=== PATIENT | female | born 1975 ===

== ENCOUNTER 2020-04-21 00:24 | Inpatient (IN) | payer OTHER ==
[2020-04-21] MEDS ORDERED: SODIUM CHLORIDE 0.9% 1000 ML 1,000 ML IV ONE ×2 (01:21→04:20)
[2020-04-21 02:11] LABS: Basophils # (Auto) 0.1 K/mm3 (0.0-0.1); Basophils % (Auto) 0.7 % (0.0-1.8); Eosinophils # (Auto) 0.1 K/mm3 (0.0-0.4); Eosinophils % (Auto) 0.5 % (0.0-4.3); Hematocrit 35.5 % (30.3-42.9); Hemoglobin 12.5 gm/dl (10.1-14.3); Lymphocytes # (Auto) 1.4 K/mm3 (1.2-5.4); Mean Corpuscular HGB Conc 35 % (30-34); Mean Corpuscular Volume 96 fl (79-97); Monocytes # (Auto) 0.6 K/mm3 (0.0-0.8); Monocytes % (Auto) 4.7 % (0.0-7.3); Platelet Count 244 K/mm3 (140-440); Red Cell Distribution Width 12.6 % (13.2-15.2)
[2020-04-21] MEDS ORDERED: KETOROLAC 30 MG/1 ML INJ IV ONE (02:36)
--- NOTE | 2020-04-21 03:20 | Ultrasound Report ---
ULTRASOUND OBSTETRIC INDICATION / CLINICAL INFORMATION: abd pain, bleeding. TECHNIQUE: Transabdominal. COMPARISON: OB ultrasound 03/28/2020 FINDINGS: Previously noted IUP no longer visualized characteristic for recent miscarriage. Uterus is mildly enlarged measuring 12.5 x 6.5 x 10.1 cm. Endometrial stripe is thickened and heterogeneous andrea suring 2.7 cm. ADNEXA: No significant abnormality. FREE FLUID: None. ADDITIONAL FINDINGS: None. IMPRESSION: 1. Spontaneous with thickened irregular endometrial stripe. No definite retained products of conception Signer Name: Carter Rahman MD Signed: 04/21/2020 3:15 AM Workstation Name: [email or web address]
--- NOTE | 2020-04-21 04:01 | Emergency Department Report ---
ED HPI - General Chief complaint: Vaginal Bleeding Stated complaint: MISCARRIAGE Time Seen by Provider: 04/21/20 01:12 Source: patient Mode of arrival: Ambulatory Limitations: No Limitations - History of Present Illness Initial comments: 45-year-old female, , presents to ED with vaginal bleeding since 10:30 PM. Patient reports she is 3 months . Patient reports associated abdominal cramping. Reports heavy bleeding with clots. OB: Hattie Macias MD Complaint: vaginal bleeding -: Last night Location: pelvis Radiation: none Severity: severe Quality: cramping Consistency: constant Improves with: none Worsens with: none Associated symptoms: denies other symptoms Vaginal bleeding: heavy, clots :: Yes Number of weeks : 12 Pre-julio care: followed by OB - Related Data : 2 Para: 1 Ab: 0 Allergies Allergy/AdvReac Type Severity Reaction Status Date / Time No Known Allergies Allergy Verified 03/28/20 10:55 ED Review of Systems ROS: Stated complaint: MISCARRIAGE Other details as noted in HPI Comment: All other systems reviewed and negative Gastrointestinal: abdominal pain Genitourinary: other (Vaginal bleeding reported) ED Past Medical Hx - Past Medical History Previous Medical History?: Yes Additional medical history: fibroids - Surgical History Past Surgical History?: Yes Additional Surgical History: x1 - Social History Smoking Status: Never Smoker Substance Use Type: None ED Physical Exam - General Limitations: No Limitations General appearance: alert, in no apparent distress - Head Head exam: Present: atraumatic, normocephalic - Eye Eye exam: Present: normal appearance, EOMI - ENT ENT exam: Present: mucous membranes moist - Neck Neck exam: Present: normal inspection - Respiratory Respiratory exam: Present: normal lung sounds bilaterally. Absent: respiratory distress - Cardiovascular Cardiovascular Exam: Present: regular rate, normal rhythm - GI/Abdominal GI/Abdominal exam: Present: soft, tenderness (suprapubic). Absent: distended - External exam: Present: normal external exam Speculum exam: Present: vaginal bleeding, other (clots and tissue in vault) - Extremities Exam Extremities exam: Present: normal inspection - Neurological Exam Neurological exam: Present: alert, oriented X3 - Psychiatric Psychiatric exam: Present: normal affect, normal mood - Skin Skin exam: Present: warm, dry, intact, normal color ED Course Vital Signs 0604/21/20 04/21/20 00:46 01:06 01:16 Temperature 98 F Pulse Rate 93 H 66 74 Respiratory 18 41 H 22 Rate Blood Pressure 96/56 Blood Pressure 110/70 [Left] O2 Sat by Pulse 98 100 Oximetry 04/21/20 04/21/20 04/21/20 01:30 01:46 02:00 Temperature Pulse Rate 66 68 64 Respiratory 19 18 17 Rate Blood Pressure 93/63 93/63 105/56 Blood Pressure [Left] O2 Sat by Pulse 100 100 100 Oximetry 04/21/20 04/21/20 04/21/20 02:16 02:30 02:46 Temperature Pulse Rate 88 77 74 Respiratory 24 27 H 22 Rate Blood Pressure 105/56 105/56 105/56 Blood Pressure [Left] O2 Sat by Pulse 100 100 100 Oximetry 04/21/20 04/21/20 04/21/20 03:00 03:16 03:30 Temperature Pulse Rate 75 Respiratory 19 15 20 Rate Blood Pressure 94/43 94/43 94/43 Blood Pressure [Left] O2 Sat by Pulse 100 100 100 Oximetry 04/21/20 04/21/20 04/21/20 03:46 04:00 04:15 Temperature Pulse Rate 62 Respiratory 19 22 27 H Rate Blood Pressure 94/43 83/42 89/46 Blood Pressure [Left] O2 Sat by Pulse 100 100 100 Oximetry 04/21/20 04/21/20 04/21/20 04:18 04:30 04:46 Temperature 98.3 F Pulse Rate 66 65 Respiratory 23 20 Rate Blood Pressure 88/43 88/45 Blood Pressure [Left] O2 Sat by Pulse 100 100 Oximetry 04/21/20 04/21/20 04/21/20 05:00 05:16 05:30 Temperature Pulse Rate 71 94 H 75 Respiratory 25 H 35 H 39 H Rate Blood Pressure 98/42 154/95 154/95 Blood Pressure [Left] O2 Sat by Pulse 100 100 100 Oximetry 04/21/20 04/21/20 04/21/20 05:45 05:56 06:00 Temperature 98.5 F Pulse Rate 67 75 Respiratory 16 24 Rate Blood Pressure 71/26 79/43 Blood Pressure [Left] O2 Sat by Pulse 100 100 Oximetry 04/21/20 04/21/20 06:16 06:30 Temperature Pulse Rate 80 67 Respiratory 21 16 Rate Blood Pressure 97/31 91/49 Blood Pressure [Left] O2 Sat by Pulse 100 100 Oximetry - Consultations Consultation #1: 04/21/20 05:00 Spoke w/ Dr Samson. Will admit. Wants pt to receive cytotec PO ED Medical Decision Making - Lab Data Result diagrams: 04/21/20 00:50 - Radiology Data Radiology results: report reviewed, image reviewed - Medical Decision Making - attempted to clear clots and tissue from vaginal vault - speculum continuously fills with blood - US no longer shows IUP - IV fluids given - Hb currently 12.5 - 2 units PRBCs transfused due to continued bleeding and hypotension - spoke w/ Dr Samson, OB, states give PO cytotec and admit to [facility] for observation - Differential Diagnosis incomplete miscarriage Critical Care Time: Yes Critical care time in (mins) excluding proc time.: 35 Critical care attestation.: If time is entered above; I have spent that time in minutes in the direct care of this critically ill patient, excluding procedure time. Critical Care Time: 35 ED Disposition Clinical Impression: , spontaneous incomplete with hemorrhage Disposition: DC-09 OP ADMIT IP TO THIS HOSP Is pt being admited?: Yes Condition: Stable Time of Disposition: 04:01
[2020-04-21] MEDS ORDERED: SODIUM CHLORIDE 0.9% 500 ML 500 ML IV ONE (04:17)
[2020-04-21] MEDS ORDERED: miSOPROStol 200 MCG TAB PO ONE (05:00)
[2020-04-21] MEDS: D5W/LACTATED RINGERS 1,000 ML IV SCH ×2 (09:00→17:17)
[2020-04-21] MEDS ORDERED: D5W/LACTATED RINGERS 1,000 ML IV ONE (09:20)
[2020-04-21 15:43] LABS: Hematocrit 22.6 % (30.3-42.9)
[2020-04-21 16:13] VITALS: BP 89/41
[2020-04-21] MEDS ORDERED: ACETAMINOPHEN 325 MG TAB PO PRN (16:52)
--- NOTE | 2020-04-21 19:00 | Discharge Summary ---
Providers - Providers Date of Admission: 04/21/20 05:02 Date of discharge: 04/21/20 Attending physician: GIDEON ZURITA MD Primary care physician: [employer]NALYST Hospitalization Delivery: other (was admitted through the er for observation following a miscarriage. BPs were noted in the low range even as patient continued without symptoms. Comparative BPs from prior visits were comparable as ER MD.) Procedure: other (none) complications: transfusion (Dr Zepeda's notes indicated patient was transfused 2 units of prbc) Discharge diagnosis: other (spontaneous ) Condition at discharge: Stable Disposition: DC-01 TO HOME OR SELFCARE - Discharge Diagnoses (1) Complete with delayed or excessive hemorrhage Status: Acute Plan - Provider Discharge Summary Activity: routine, no sex for 6 weeks Diet: routine Instructions: other (F/U with own MD within 1-2 days; return to the hospital prn for heavy bleeding, shortness of breath, diziness.) Additional instructions: [] Smoking cessation referral if applicable(refer to patient education folder for contact #) [] Refer to [facility] Booklet Call your doctor immediately for: * Fever > 100.5 * Heavy vaginal bleeding ( >1 pad per hour) * Severe persistent headache * Shortness of breath * Reddened, hot, painful area to leg or breast * Drainage or odor from incision. * Keep incision clean and dry at all times and follow doctor's instructions regarding bathing/showering - Follow up plan Follow up: PRIMARY CARE, [Primary Care Provider] - 3-5 Days
== END 2020-04-21 21:00 | disposition home or self-care (01) | DRG 779 ==
LOC: ED 00:24 → OB 05:02
PROVIDERS: ADMIT Obstetrics & Gynecology; ATTEND Obstetrics & Gynecology
PROC: 30233N1 Transfusion of Nonautologous Red Blood Cells into Peripheral Vein, Percutaneous Approach (ICD-10-PCS; principal; 2020-04-21)
DX: O03.9 Complete or unspecified spontaneous abortion without complication (principal)
CPT/HCPCS: 36415; 76801; 84702; 85014; 85018; 85025; 86850; 86900; 86901; 86920; 88305; G0378; J1885; J7030; J7121